=== PATIENT | female | born 1945 | race Caucasian/White ===

== ENCOUNTER → 2022-05-31 08:14 | Outpatient (CLI) | payer MEDICARE, SELFPAY ==
--- NOTE | 2022-05-31 08:23 | DI.MRI.S_ITS ---
PROCEDURE: MR WRIST LT W CON INDICATIONS: Pain in left wrist Effusion, left wrist TECHNIQUE: After the administration of 3-4 mL of dilute intra-articular Gadolinium contrast into the radiocarpal compartment, coronal T1 spin echo with fat saturation and T2 fast spin echo with fat saturation, axial T1 spin echo and T2 fast spin echo with fat saturation, sagittal T1 spin echo with and without fat saturation through the wrist. COMPARISON: None. FINDINGS: Image quality: Excellent. Bones and cartilage: The carpal bones are normally aligned. No bone marrow contusions or fractures. No evidence for avascular necrosis. There is moderate ill-defined STIR signal elevation within the distal radius and ulna, the scaphoid, lunate, and triquetral as well as the capitate hamate, trapezoid and trapezium, suggestive of degenerative marrow edema. Severe articular cartilage loss at the radiocarpal interface. Carpal ligaments: Full-thickness tearing of the scapholunate ligament, predominantly involving the mid and dorsal aspects. There appears to be a mildly displaced tear of the lunatotriquetral ligament. The radioscaphocapitate and radiolunotriquetral ligaments appear intact. The arcuate ligament and short radiolunate ligament also appear normal. The dorsal intercarpal and radiotriquetral ligaments appear intact. On sagittal images, the pisohamate ligament appears intact. Triangular fibrocartilage complex: There is tearing of the triangular fibrocartilage complex adjacent to the radial insertion site with associated extension of contrast into the distal radial ulnar joint. The adjacent meniscal homolog appears normal. The ulnar collateral ligament appears intact. The extensor carpi ulnaris tendon is normal in location and morphology. Tendons and soft tissues: The carpal tunnel structures appear normal, including the median nerve. The ulnar nerve appears normal within Guyon's canal. All six extensor tendon compartments demonstrate normal morphology, without pathologic tendon sheath fluid. No soft tissue ganglion cysts. IMPRESSION: 1. Scapholunate and lunatotriquetral ligamentous tears. 2. Triangular fibrocartilage complex tear. 3. 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 Dictated by: Shon Rivas M.D. on 05/31/2022 at 10:29 Transcribed by: LEIDY on 05/31/2022 at 10:33 Approved by: Shon Rivas M.D. on 05/31/2022 at 11:59
--- NOTE | 2022-05-31 08:25 | DI.RAD.S_ITS ---
PROCEDURE: FL WRIST INJECTION MR/CT LT INDICATIONS: Pain in left wrist Effusion, left wrist COMPARISON: None. TECHNIQUE: After informed consent had been obtained, the wrist was examined fluoroscopically, and a site chosen for injection of the radiocarpal compartment from a dorsal approach. Skin was prepped and draped in a sterile fashion and 1% lidocaine infiltrated from the skin down to the articular surface. A hypodermic needle was then introduced into the articular space and a modest amount of contrast medium was instilled confirming intra-articular needle tip placement. This was followed by approximately 4 mL of a dilute gadolinium solution. Needle was removed and dressing was applied. The patient experienced no complications throughout the procedure and left the fluoroscopic suite in no apparent distress. FINDINGS: A single fluoroscopic spot image demonstrates intra-articular location to injected iodinated contrast. IMPRESSION: Successful fluoroscopic-guided administration of dilute Gadolinium solution for wrist MR arthrogram. Dictated by: Saravanan Mcfarland M.D. on 05/31/2022 at 11:12 Approved by: aSravanan Mcfarland M.D. on 05/31/2022 at 11:13
== END ==
PROVIDERS: PCP Family Medicine; Referring Provider Physician Assistant Medical; Visit Provider Physician Assistant Medical
DX: S63.8X2A Sprain of other part of left wrist and hand, initial encounter (principal); S63.592A Other specified sprain of left wrist, initial encounter; M19.032 Primary osteoarthritis, left wrist; M25.432 Effusion, left wrist; M25.532 Pain in left wrist
CPT/HCPCS: 20605; 73222; 76000

== ENCOUNTER → 2024-04-19 11:02 | Outpatient (CLI) | payer MEDICARE, SELFPAY ==
--- NOTE | 2024-04-19 11:06 | DI.MG.S_ITS ---
BILATERAL DIGITAL SCREENING MAMMOGRAM 3D/2D WITH CAD: 04/19/2024 CLINICAL: Baseline exam. Routine screening. No prior exams were available for comparison. There are scattered areas of fibroglandular density (category b / 25%-50% glandular tissue). Current study was also evaluated with a Computer Aided Detection (CAD) system. No significant masses, calcifications, or other findings are seen in either breast. IMPRESSION: NEGATIVE There is no mammographic evidence of malignancy. A 1 year screening mammogram is recommended. Based on the Tyrer Cuzick model (a risk assessment model) the patient's lifetime risk is 3.6% and her 10 year risk is 0.0%. According to the ACR, ACS, and NCCN guidelines, an annual breast MRI exam along with mammogram is recommended if the patient's lifetime risk is 20% or greater. This exam was interpreted at Station ID: [id number]. NOTE: For mammograms, a report in lay terms will be sent to the patient. Approximately 15% of breast malignancies will not be visualized mammographically. In the management of a palpable breast mass, a negative mammogram must not discourage biopsy of a clinically suspicious lesion. Electronically Signed By: Dara alvarez/micaela:04/19/2024 16:28:58 letter sent: Normal Exam ACR BI-RADS Category 1: Negative
--- NOTE | 2024-04-19 11:07 | DI.RAD.S_ITS ---
PROCEDURE: XR DEXA AXIAL SKELETON INDICATIONS: ROUTINE COMPARISON: None. FINDINGS: Lumbar Spine: Bone mineral density 0.874 g/cm2, T score -1.6. Left Femoral Neck: Bone mineral density 0.507 g/cm2, T score -3.1. Left Hip: Bone mineral density 0.640 g/cm2, T score -2.5. Fracture Risk Calculation (when applicable): 10-year fracture risk of a major osteoporotic fracture 27 percent and of a hip fracture 11 percent. (T score greater or equal to -1.0 to: NORMAL) (T score from -1.1 to -2.4: OSTEOPENIA) (T score less than or equal to -2.5: OSTEOPOROSIS) IMPRESSION: Osteoporosis within the left femoral neck as well as left hip with [id number] osteopenia in the lumbar spine. Follow-up guidelines as follows: Osteoporosis: Consider a repeat DEXA and Vertebral Fracture Assessment (VFA) exam in 2 years or sooner if medically necessary, to reassess this patient's status. Osteopenia: Consider a repeat DEXA in 2-3 years to reassess this patient's status, or if there is a new clinical indication. Normal: Consider a repeat DEXA in 5 years or sooner, or if there is a new clinical indication. All treatment decisions require clinical judgment and consideration of individual patient factors, including patient preferences, comorbidities, previous drug use, risk factors not captured in the FRAX model (e.g., frailty, falls, vitamin D deficiency, increased bone turnover, interval significant decline in bone density ) and possible under- or over-estimation of fracture risk by FRAX. In addition, the NOF Guide recommends that FDA-approved medical therapies be considered in postmenopausal women and men age >= 50 years with a: * Hip or vertebral (clinical or morphometric) fracture * T-score of <=-2.5 at the spine or hip * Ten-year fracture probability by FRAX of >= 3% for hip fracture or >=20% for major osteoporotic fracture. Dictated by: Sun Escobar M.D. on 04/19/2024 at 15:21 Approved by: Sun Escobar M.D. on 04/19/2024 at 15:22
== END ==
PROVIDERS: PCP Family Medicine; Referring Provider Family Medicine; Visit Provider Family Medicine
DX: Z12.31 Encounter for screening mammogram for malignant neoplasm of breast (principal); M81.0 Age-related osteoporosis without current pathological fracture
CPT/HCPCS: 77063; 77067; 77080